=== PATIENT | female | born 1990 | race Caucasian/White ===

== ENCOUNTER → 2017-12-07 | Outpatient (CLI) | payer OTHER | END | disposition home or self-care (01) | LOC: MLB 17:48 | PROVIDERS: ATTEND Family Medicine | DX: N91.1 Secondary amenorrhea (principal) | CPT/HCPCS: 36415; 84702 ==

== ENCOUNTER 2018-01-13 23:13 | Emergency (ER) | payer OTHER ==
[~2018-01-13] VITALS: Ht 170.2 cm; Wt 79.8 kg
[2018-01-13 23:36] VITALS: BP 163/79
--- NOTE | 2018-01-13 23:36 | NUR ---
27/F CAME IN WITH FAMILY, C/O 01/01 SUDDEN ONSET CRAMPING/PRESSURE-LIKE LOWER ABD, RADIATING TO UPPER ABD, X1 HR. PT IS , LMP 08/2017, A0. AOX,4 AMBULATORY, RR EVEN AND UNLABORED. LUNG SOUNDS CLEAR BL. BS ACTIVE X4, ABD SOFT ROUND TENDER TO TOUCH. PT DENIES MED HX. 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 ER MD MADE AWARE.
--- NOTE | 2018-01-13 23:36 | NUR ---
PT ESCORTED TO ROOM 12 WITH VSS. Addendum: 01/13/18 at 2336 by MED PT AMBULATED TO BED 12 WITH VSS.
[2018-01-13 23:58] LABS: APPEARANCE,URINE SL CLOUDY (CLEAR); BILIRUBIN,URINE NEGATIVE (NEGATIVE); BLOOD, URINE 1+ (NEGATIVE); COLOR,URINE YELLOW (YELLOW); LEUKOCYTE ESTERASE ,URINE 2+ (NEGATIVE); NITRITE, URINE NEGATIVE (NEGATIVE); UGLUCOSE NEGATIVE (NEGATIVE)
[2018-01-14 00:02] LABS: BASOPHILS % (AUTO) 0.3 % (0.0-2.0); EOSINOPHILS # (AUTO) 0.1 K/uL (0-0.4); EOSINOPHILS % (AUTO) 0.6 % (0.0-4.0); HEMATOCRIT 38.6 % (36-48); HEMOGLOBIN 12.9 g/dL (12.0-16.0); LYMPHOCYTES # (AUTO) 2.6 K/uL (2.5-16.5); LYMPHOCYTES % (AUTO) 21.9 % (20.5-51.1); MEAN CORPUSCULAR HEMOGLOBIN 26 pg (27-31); MEAN CORPUSCULAR HGB CONC 33 g/dL (33-37); MEAN CORPUSCULAR VOLUME 78.3 fL (80-94); MONOCYTES # (AUTO) 0.6 K/uL (0.8-1.0); MONOCYTES % (AUTO) 5.1 % (1.7-9.3); NEUTROPHILS # (AUTO) 8.6 K/uL (1.8-7.7); NEUTROPHILS % (AUTO) 72.1 % (42.2-75.2); PLATELET COUNT (AUTO) 279 K/uL (140-450); RED BLOOD CELL COUNT(AUTO) 4.93 MIL/uL (4.20-5.40); RED CELL DISTRIBUTION WIDTH 14.7 % (11.6-13.7)
[2018-01-14 00:06] LABS: ANION GAP 10.9 (8-16); CARBON DIOXIDE 27.3 mmol/L (21-32); CREATININE 0.6 mg/dL (0.6-1.3); POTASSIUM 3.2 mmol/L (3.5-5.1)
[2018-01-14 00:16] LABS: RBC,URINE 11-20 (MOD) /HPF (0-5); WBC,URINE 20-60 /HPF (0-5)
[2018-01-14] MEDS ORDERED: ACETAMINOPHEN EXTRA STRENGTH 500 MG TAB PO ONE (00:50)
[2018-01-14 01:12] VITALS: BP 129/69
== END 2018-01-14 01:12 | disposition home or self-care (01) ==
LOC: MED 23:13
DX: O23.41 Unspecified infection of urinary tract in pregnancy, first trimester (principal); Z3A.09 9 weeks gestation of pregnancy
CPT/HCPCS: 36415; 76801; 80048; 81001; 81025; 84702; 85025; 86900; 86901; 87086; 99284; Q0092

== ENCOUNTER 2021-05-10 12:50 | Outpatient (CLI) | payer OTHER ==
[2021-05-10 15:36] LABS: BASOPHILS % (AUTO) 0.4 % (0.0-2.0); EOSINOPHILS # (AUTO) 0.1 K/uL (0-0.4); EOSINOPHILS % (AUTO) 0.8 % (0.0-4.0); HEMATOCRIT 38.5 % (36-48); LYMPHOCYTES # (AUTO) 1.9 K/uL (2.5-16.5); LYMPHOCYTES % (AUTO) 25.4 % (20.5-51.1); MEAN CORPUSCULAR HEMOGLOBIN 25 pg (27-31); MEAN CORPUSCULAR HGB CONC 34 g/dL (33-37); MEAN CORPUSCULAR VOLUME 74.4 fL (80-94); MONOCYTES # (AUTO) 0.3 K/uL (0.8-1.0); MONOCYTES % (AUTO) 4.2 % (1.7-9.3); NEUTROPHILS # (AUTO) 5.3 K/uL (1.8-7.7); NEUTROPHILS % (AUTO) 69.2 % (42.2-75.2); PLATELET COUNT (AUTO) 301 K/uL (140-450); RED BLOOD CELL COUNT(AUTO) 5.17 MIL/uL (4.20-5.40); WHITE BLOOD COUNT (AUTO) 7.6 K/uL (4.8-10.8)
[2021-05-10 16:09] LABS: ALBUMIN 3.4 g/dL (3.4-5.0); ANION GAP 11.8 (8-16); CREATININE 0.7 mg/dL (0.6-1.3); POTASSIUM 3.8 mmol/L (3.5-5.1); THYROID STIMULATING HORMONE 1.8 uIU/mL (0.34-3.74); TOTAL BILIRUBIN 0.2 mg/dL (0.0-1.0)
[2021-05-11 07:07] LABS: FOLLICLE STIMULATING HORMONE 4.4 mIU/mL (.); T4 (THYROXINE) 7.7 ug/dL (4.5-12.0); TRIIODOTHYRONINE FREE 3.2 pg/mL (2.0-4.4)
== END 2021-05-10 20:41 | disposition home or self-care (01) ==
LOC: MLB 12:50
PROVIDERS: ATTEND Obstetrics & Gynecology
DX: R53.83 Other fatigue (principal)
CPT/HCPCS: 36415; 80053; 82306; 82607; 82670; 83001; 84403; 84436; 84443; 84481; 85025; 86376

== ENCOUNTER 2022-02-02 07:35 | Emergency (ER) | payer OTHER ==
[~2022-02-02] VITALS: Ht 170.2 cm; Wt 81.6 kg
[2022-02-02] MEDS ORDERED: LIDOCAINE/EPI 2% 1:100000 20 ML VIAL INJ ONE ×2 (07:40→07:42)
[2022-02-02 07:46] VITALS: BP 148/95
--- NOTE | 2022-02-02 07:50 | NUR ---
31/F PRESENTS TO ED WITH C/O LEFT THUMB PAIN S/P CLOSING HER CAR DOOR ONTO HER FINGER. FINGER APPEARS SWOLLEN AND BRUISED, DENIES TAKING MEDS FOR PAIN, DENIES FEVERS, CHILLS.
[2022-02-02] MEDS ORDERED: BACITRACIN OINT 500 UNITS/GM PKT TP ONE ×2 (07:55→08:00)
[2022-02-02] MEDS ORDERED: NAPR-54 PO (07:57)
[2022-02-02 08:10] VITALS: BP 148/95
--- NOTE | 2022-02-02 08:10 | NUR ---
Patient discharged with v/s stable. Written and verbal after care instructions ABOUT SUBUNGUAL HEMATOMA given and explained. Patient alert, oriented and verbalized understanding of instructions. Ambulatory with steady gait. All questions addressed prior to discharge. ID band removed. Patient advised to follow up with PMD. Rx of NAPROSYN given. Patient educated on indication of medication including possible reaction and side effects. Opportunity to ask questions provided and answered.
== END 2022-02-02 08:10 | disposition home or self-care (01) ==
LOC: MED 07:35
DX: S60.112A Contusion of left thumb with damage to nail, initial encounter (principal); X58.XXXA Exposure to other specified factors, initial encounter; Y93.89 Activity, other specified; Y92.89 Other specified places as the place of occurrence of the external cause; Y99.8 Other external cause status
CPT/HCPCS: 11730; 99284; J2001

== ENCOUNTER 2022-03-28 07:13 | Outpatient (CLI) | payer OTHER ==
[~2022-03-28 07:13] MED LIST: NAPR-54 PO
== END 2022-03-28 20:29 | disposition home or self-care (01) ==
LOC: MLB 07:13
PROVIDERS: ATTEND Specialist
DX: O03.4 Incomplete spontaneous abortion without complication (principal)
CPT/HCPCS: 36415; 84144; 84702

== ENCOUNTER 2022-03-30 07:20 | Outpatient (CLI) | payer OTHER | END 2022-03-30 16:16 | disposition home or self-care (01) | LOC: MLB 07:20 | PROVIDERS: ATTEND Specialist | DX: O03.4 Incomplete spontaneous abortion without complication (principal) | CPT/HCPCS: 36415; 84144; 84702 ==

== ENCOUNTER 2022-03-31 10:17 | Outpatient (CLI) | payer OTHER | END 2022-03-31 21:10 | disposition home or self-care (01) | LOC: MUS 10:17 | PROVIDERS: ATTEND Specialist | DX: N85.8 Other specified noninflammatory disorders of uterus (principal); N83.519 Torsion of ovary and ovarian pedicle, unspecified side | CPT/HCPCS: 76817 ==

== ENCOUNTER 2022-04-10 11:35 | Outpatient (CLI) | payer OTHER | END 2022-04-10 20:12 | disposition home or self-care (01) | LOC: MLB 11:35 | PROVIDERS: ATTEND Specialist | DX: O03.4 Incomplete spontaneous abortion without complication (principal) | CPT/HCPCS: 36415; 84702 ==

== ENCOUNTER 2022-05-22 06:34 | Outpatient (CLI) | payer OTHER | END 2022-05-22 21:50 | disposition home or self-care (01) | LOC: MLB 06:34 | PROVIDERS: ATTEND Specialist | DX: O03.4 Incomplete spontaneous abortion without complication (principal) | CPT/HCPCS: 36415; 84702 ==

== ENCOUNTER 2022-07-15 07:11 | Outpatient (CLI) | payer OTHER ==
[2022-07-15 08:14] LABS: BASOPHILS % (AUTO) 0.3 % (0.0-2.0); EOSINOPHILS # (AUTO) 0.1 K/uL (0-0.4); EOSINOPHILS % (AUTO) 1.4 % (0.0-4.0); HEMATOCRIT 35.2 % (36-48); HEMOGLOBIN 11.3 g/dL (12.0-16.0); LYMPHOCYTES # (AUTO) 1.7 K/uL (2.5-16.5); LYMPHOCYTES % (AUTO) 21.7 % (20.5-51.1); MEAN CORPUSCULAR HEMOGLOBIN 22 pg (27-31); MEAN CORPUSCULAR HGB CONC 32 g/dL (33-37); MEAN CORPUSCULAR VOLUME 69.2 fL (80-94); MONOCYTES # (AUTO) 0.4 K/uL (0.8-1.0); MONOCYTES % (AUTO) 5.2 % (1.7-9.3); NEUTROPHILS # (AUTO) 5.5 K/uL (1.8-7.7); NEUTROPHILS % (AUTO) 71.4 % (42.2-75.2); PLATELET COUNT (AUTO) 311 K/uL (140-450); RED BLOOD CELL COUNT(AUTO) 5.09 MIL/uL (4.20-5.40); RED CELL DISTRIBUTION WIDTH 14.3 % (11.6-13.7); WHITE BLOOD COUNT (AUTO) 7.8 K/uL (4.8-10.8)
[2022-07-15 08:28] LABS: ALBUMIN 3.8 g/dL (3.4-5.0); ANION GAP 13.7 (8-16); CARBON DIOXIDE 25.1 mmol/L (21-32); CREATININE 0.7 mg/dL (0.6-1.3); POTASSIUM 3.8 mmol/L (3.5-5.1); TOTAL BILIRUBIN 0.2 mg/dL (0.0-1.0)
[2022-07-16 11:14] LABS: FOLIC ACID 14.3 ng/mL (>3.0)
[2022-07-16 15:31] LABS: T4 FREE (DIRECT) 1.3 ng/ml (0.82-1.77)
[2022-07-16 15:32] LABS: FOLLICLE STIMULATING HORMONE 8.2 mIU/mL (3.5 - 12.5)
== END 2022-07-15 20:01 | disposition home or self-care (01) ==
LOC: MLB 07:11
PROVIDERS: ATTEND Obstetrics & Gynecology
DX: N97.9 Female infertility, unspecified (principal)
CPT/HCPCS: 36415; 80053; 82306; 82607; 82670; 82746; 83001; 83036; 84402; 84403; 84439; 84480; 85025